=== PATIENT | male | born 1980 | race African-American/Black ===

== ENCOUNTER 2019-09-17 16:21 | Emergency (ER) | payer SELFPAY ==
[~2019-09-17] VITALS: Ht 177.8 cm; Wt 72.0 kg
[2019-09-17] MEDS ORDERED: CYCLOBENZAPR5 MG PO (17:03)
[2019-09-17 17:20] VITALS: BP 131/90
== END 2019-09-17 17:20 | disposition home or self-care (01) | DRG 556 ==
LOC: ED 16:21
DX: M62.838 Other muscle spasm (principal)

== ENCOUNTER 2021-06-13 16:22 | Emergency (ER) | payer SELFPAY ==
[2021-06-13] VITALS (8 sets, daily range): BP systolic 130–150; BP diastolic 89–102
[~2021-06-13] VITALS: Ht 177.8 cm; Wt 75.0 kg
[~2021-06-13 16:22] MED LIST: CYCLOBENZAPR5 MG PO
[2021-06-13] MEDS ORDERED: TRAMADOL HCL50 MG PO (17:34)
[2021-06-13] MEDS ORDERED: AMOX/K CLAV875 M1 PO (21:02)
== END 2021-06-13 18:12 | disposition home or self-care (01) | DRG 159 ==
LOC: ED 16:22
PROC: 0CQ1XZZ Repair Lower Lip, External Approach (ICD-10-PCS; principal; 2021-06-13)
DX: S01.541A Puncture wound with foreign body of lip, initial encounter (principal); S02.5XXA Fracture of tooth (traumatic), initial encounter for closed fracture; W30.9XXA Contact with unspecified agricultural machinery, initial encounter